=== PATIENT | male | born 1980 | race Caucasian/White ===

== ENCOUNTER 2016-09-20 05:46 | Emergency (ER) | payer MEDICARE, OTHER ==
[~2016-09-20] VITALS: Ht 172.7 cm; Wt 95.0 kg
[~2016-09-20 05:46] MED LIST: FLUO-1 PO; RISP.25 PO; TRAZ100 PO
[2016-09-20 05:51] VITALS: BP 159/105; PULSE 87; RESP 16; TEMP 97.7; O2SAT 98
[2016-09-20] MEDS ORDERED: LISI-519 PO (05:52)
--- NOTE | 2016-09-20 06:10 | PD ---
HPI Chief Complaint: Injury Time Seen by Provider: 06:00 Travel History International Travel<30 days: No Contact w/Intl Traveler<30days: No Traveled to known affect area: No History of Present Illness HPI [id number] male presents for evaluation of right hand pain. He reports that yesterday evening he could not close the lid of his car door and so he tried banging on it with his right fist and he felt pain in his right hand. Pain is An aching pain worse with movement. Associated swelling. In addition he has a cough for one week. He reports a history of chronic bronchitis and this feels like a flareup. He is out of his albuterol medication. Denies fevers or chills. The cough is mildly productive with phlegm production. No other complaints. PFSH Past Medical History Anxiety: Yes Depression: Yes Heart Rhythm Problems: No Cardiac Catheterization: No Cardiovascular Problems: Yes (HTN) High Cholesterol: No Congestive Heart Failure: No Diabetes: No Diminished Hearing: No Hypertension: No Psychiatric: Yes Respiratory: Yes (CHRONIC BRONCHITIS) Integumentary: Yes (HISTORY OF MRSA) Immunizations Current: No Myocardial Infarction: No Past Surgical History Coronary Artery Bypass Graft: No Tonsillectomy: Yes Other Surgery: Yes (brown recluse spider bite to elbow and had mrsa) Social History Alcohol Use: Yes (OCCASIONALLY) Tobacco Use: Yes (1/2 PPD) Substance Use: No Allergies-Medications (Allergen,Severity, Reaction): Coded Allergies: Penicillin (Verified Allergy, Severe, Anaphylaxis, 09/20/16) Reported Meds & Prescriptions Reported Meds & Active Scripts Active Proair Hfa 8.5 GM Inh (Albuterol Sulfate) 90 Mcg/Act Aer 2 Puff INH Q4-6H PRN 108 mcg/actuation Tessalon Perles (Benzonatate) 100 Mg Cap 200 Mg PO TID PRN 5 Days Prednisone 20 Mg Tab 20 Mg PO BID 5 Days Azithromycin 250 Mg Tab 250 Mg PO DIRECTED Take 2 tabs (500 mg) on day 1 then 1 tab daily x 4 days. Reported Lisinopril 5 Mg Tab 5 Mg PO DAILY Review of Systems Except as stated in HPI: all other systems reviewed are Neg Physical Exam Narrative GENERAL: Well-developed well-nourished male in no acute distress SKIN: Warm and dry. CARDIOVASCULAR: Regular rate and rhythm. No murmur appreciated. RESPIRATORY: No accessory muscle use. Clear to auscultation. Breath sounds equal bilaterally. Extremities: Right hand tenderness to palpation over the fourth and fifth metacarpals, mild bruising and soft tissue swelling. The patient maintains full flexion and extension of the fingers of the right hand with some pain. Capillary refill intact. Distal sensation intact. Data Data Last Documented VS Vital Signs Date Time Temp Pulse Resp B/P Pulse Ox O2 Delivery O2 Flow Rate FiO2 09/20/16 05:51 97.7 87 16 159/105 98 Room Air Orders Hand, Complete ([id number]) (09/20/16 ) Ibuprofen (Motrin) (09/20/16 07:00) MDM Medical Decision Making Medical Screen Exam Complete: Yes Emergency Medical Condition: Yes Medical Record Reviewed: Yes Interpretation(s) Right hand x-ray reveals no acute abnormalities Differential Diagnosis Right hand metacarpal fracture, sprain, contusion Narrative Course 36-year-old male with right hand pain after banging on his car rodriguez with his closed fist in order to close it. He has mild bruising on the right hand and tenderness to palpation over the fourth and fifth metacarpals diffusely. He maintains full range of motion and he has normal neurovascular status. Right index reveals no acute abnormalities. In addition the patient has a history of chronic bronchitis and is complaining of a cough for one week. He is out of his albuterol inhaler. His lungs sound clear and he is afebrile, not tachycardic. Plan is to treat him with a refill of his albuterol inhaler, Tessalon, prednisone and azithromycin. He is stable for discharge. Diagnosis Primary Impression: Contusion of right hand Qualified Code: S60.221A - Contusion of right hand, initial encounter Additional Impression: Bronchitis Additional Instructions: Medication as prescribed. Take [id number] Tylenol or ibuprofen for discomfort. Apply ice pack to the affected area several times a day 10 minutes at a time. Follow-up with primary care physician. Med/Other Pt SpecificInfo: Prescription(s) given Scripts Albuterol 8.5 GM Inh (Proair Hfa 8.5 GM Inh)90 Mcg/Act Aer2 Puff INH Q4-6H PRN ( SHORTNESS OF BREATH) #1 INHALER Ref 0 108 mcg/actuation Prov:Missy Heaton MD 09/20/16 Benzonatate (Tessalon Perles)100 Mg Hat222 Mg PO TID PRN (COUGH) 5 Days Ref 0 Prov:Missy Heaton MD 09/20/16 Prednisone 20 Mg Tab20 Mg PO BID 5 Days Ref 0 Prov:Missy Heaton MD 09/20/16 Azithromycin 250 Mg Uha953 Mg PO DIRECTED #6 TAB Ref 0 Take 2 tabs (500 mg) on day 1 then 1 tab daily x 4 days. Prov:Missy Heaton MD 09/20/16 Disposition: 01 DISCHARGE HOME Condition: Stable Remy Cordoba Sep 20, 2016 06:10
--- NOTE | 2016-09-20 06:36 | RADRPT ---
EXAM DATE/TIME: 09/20/2016 06:12 [facility] COMPARISON: No previous studies available for comparison. INDICATIONS : Right hand pain. MEDICAL HISTORY : None. SURGICAL HISTORY : None. ENCOUNTER: Initial ACUITY: 2 days PAIN SCORE: 8/10 LOCATION: lateral hand. FINDINGS: Three view examination of the right hand demonstrates no soft tissue swelling, dislocation, or fractu re. The carpal bones appear intact. The interphalangeal and metacarpophalangeal joints are intact. Bony mineralization is normal. CONCLUSION: The osseous structures of the hand are intact. Mateo Sadler MD on September 20, 2016 at 6:34 Board Certified Radiologist. This report was verified electronically.
[2016-09-20] MEDS ORDERED: PRED20 PO (06:44)
[2016-09-20] MEDS ORDERED: BENZ100 PO (06:44)
[2016-09-20] MEDS ORDERED: AZIT250T3 PO (06:44)
[2016-09-20] MEDS ORDERED: ALBUAER3 INH (06:49)
[2016-09-20] MEDS ORDERED: IBUPROFEN 800 MG TAB PO ONE (07:00)
== END 2016-09-20 07:14 | disposition home or self-care (01) ==
LOC: NEPB 05:46
DX: S60.221A Contusion of right hand, initial encounter (principal); J42 Unspecified chronic bronchitis; I10 Essential (primary) hypertension; F17.200 Nicotine dependence, unspecified, uncomplicated; Z86.14 Personal history of Methicillin resistant Staphylococcus aureus infection; Z86.59 Personal history of other mental and behavioral disorders; Z87.09 Personal history of other diseases of the respiratory system; W22.09XA Striking against other stationary object, initial encounter
CPT/HCPCS: 73130; 99283

== ENCOUNTER 2016-11-24 10:02 | Emergency (ER) | payer MEDICARE, OTHER ==
[~2016-11-24] VITALS: Ht 172.7 cm; Wt 90.0 kg
[~2016-11-24 10:02] MED LIST changes: +ALBUAER3 INH; +AZIT250T3 PO; +BENZ100 PO; -FLUO-1 PO; +LISI-519 PO; +PRED20 PO; -RISP.25 PO; -TRAZ100 PO
[2016-11-24 10:03] VITALS: BP 143/99; PULSE 93; RESP 16; TEMP 97.9; O2SAT 96
[2016-11-24 10:22] VITALS: BP 134/98; PULSE 77; RESP 18; TEMP 98.6; O2SAT 100
[2016-11-24] MEDS ORDERED: LORazepam 1 MG TAB PO ONE (10:30)
--- NOTE | 2016-11-24 10:43 | PD ---
HPI Chief Complaint: Psychiatric Symptoms Time Seen by Provider: 10:12 Travel History International Travel<30 days: No Contact w/Intl Traveler<30days: No Traveled to known affect area: No History of Present Illness HPI The patient is a 36-year-old male who presents emergency department for psychiatric evaluation. The patient states he has a history of PTSD and depression. The patient has not been taking his psychiatric medications. The patient does complain of insomnia, states he has difficulty sleeping for approximately a knife at a time. He has been trying Ambien extended release without any symptomatic relief. He does have thoughts of harming himself with suicidal thoughts, does have a history of previous suicide attempts with overdose. The patient is requesting psychiatric evaluation. He also admits to drinking alcohol intermittently, binge drinking, and smoking marijuana occasionally. The patient denies any hallucinations or delusions. Patient denies any current chest pain, shortness of breath, nausea, vomiting, or abdominal pain. PFSH Past Medical History Anxiety: Yes Depression: Yes Heart Rhythm Problems: No Cardiac Catheterization: No Cardiovascular Problems: Yes (HTN) High Cholesterol: No Congestive Heart Failure: No Diabetes: No Diminished Hearing: No Hypertension: No Psychiatric: Yes Respiratory: Yes (CHRONIC BRONCHITIS) Integumentary: Yes (HISTORY OF MRSA) Immunizations Current: No Myocardial Infarction: No Past Surgical History Coronary Artery Bypass Graft: No Tonsillectomy: Yes Other Surgery: Yes (brown recluse spider bite to elbow and had mrsa) Social History Alcohol Use: Yes (OCCASIONALLY) Tobacco Use: Yes (1/2 PPD) Substance Use: No Allergies-Medications (Allergen,Severity, Reaction): Coded Allergies: Penicillin (Verified Allergy, Severe, Anaphylaxis, 09/20/16) Reported Meds & Prescriptions Reported Meds & Active Scripts Active Proair Hfa 8.5 GM Inh (Albuterol Sulfate) 90 Mcg/Act Aer 2 Puff INH Q4-6H PRN 108 mcg/actuation Tessalon Perles (Benzonatate) 100 Mg Cap 200 Mg PO TID PRN 5 Days Prednisone 20 Mg Tab 20 Mg PO BID 5 Days Azithromycin 250 Mg Tab 250 Mg PO DIRECTED Take 2 tabs (500 mg) on day 1 then 1 tab daily x 4 days. Reported Lisinopril 5 Mg Tab 5 Mg PO DAILY Review of Systems Except as stated in HPI: all other systems reviewed are Neg Cardiovascular: No: Chest Pain or Discomfort Respiratory: No: Shortness of Breath Gastrointestinal: No: Nausea, Vomiting, Abdominal Pain Genitourinary: No: Dysuria Psychiatric: Positive: Depression, Suicidal Ideations, Mood Disorder, Substance Abuse, No: Homicidal Ideation Physical Exam Narrative GENERAL: Awake, alert, pleasant 36-year-old male who appears his stated age is in no acute respiratory distress. SKIN: Warm and dry. HEAD: Atraumatic. Normocephalic. EYES: Mild injection bilateral, no drainage. ENT: No nasal bleeding or discharge. Mucous membranes pink and moist. NECK: Trachea midline. No JVD. CARDIOVASCULAR: Regular rate and rhythm. No murmur appreciated. RESPIRATORY: No accessory muscle use. Clear to auscultation. Breath sounds equal bilaterally. GASTROINTESTINAL: Abdomen soft, non-tender, nondistended. No rebound tenderness. MUSCULOSKELETAL: No obvious deformities. No clubbing. No cyanosis. No edema. NEUROLOGICAL: Awake and alert. No obvious cranial nerve deficits. Motor grossly within normal limits. Normal speech. Nonfocal. PSYCHIATRIC: Flat affect. Data Data Last Documented VS Vital Signs Date Time Temp Pulse Resp B/P Pulse Ox O2 Delivery O2 Flow Rate FiO2 11/24/16 10:28 78 16 11/24/16 10:22 98.6 134/98 100 Orders Complete Blood Count With Diff (11/24/16 10:16) Comprehensive Metabolic Panel (11/24/16 10:16) Psych Screen (11/24/16 10:16) Drug Screen, Random Urine (11/24/16 10:16) Alcohol (Ethanol) (11/24/16 10:16) Diet Regular Basic (11/24/16 Lunch) Lorazepam (Ativan) (11/24/16 10:30) Labs Laboratory Tests Test 11/24/16 11/24/16 10:37 11:30 White Blood Count 6.3 TH/MM3 Red Blood Count 5.16 MIL/MM3 Hemoglobin 17.0 GM/DL Hematocrit 49.7 % Mean Corpuscular Volume 96.3 FL Mean Corpuscular Hemoglobin 32.9 PG Mean Corpuscular Hemoglobin 34.2 % Concent Red Cell Distribution Width 13.7 % Platelet Count 186 TH/MM3 Mean Platelet Volume 8.9 FL Neutrophils (%) (Auto) 67.8 % Lymphocytes (%) (Auto) 21.6 % Monocytes (%) (Auto) 8.7 % Eosinophils (%) (Auto) 1.0 % Basophils (%) (Auto) 0.9 % Neutrophils # (Auto) 4.3 TH/MM3 Lymphocytes # (Auto) 1.4 TH/MM3 Monocytes # (Auto) 0.5 TH/MM3 Eosinophils # (Auto) 0.1 TH/MM3 Basophils # (Auto) 0.1 TH/MM3 CBC Comment DIFF FINAL Differential Comment Sodium Level 139 MEQ/L Potassium Level 3.5 MEQ/L Chloride Level 100 MEQ/L Carbon Dioxide Level 27.6 MEQ/L Anion Gap 11 MEQ/L Blood Urea Nitrogen 5 MG/DL Creatinine 0.85 MG/DL Estimat Glomerular Filtration 101 ML/MIN Rate Random Glucose 92 MG/DL Calcium Level 8.5 MG/DL Total Bilirubin 0.5 MG/DL Aspartate Amino Transf 92 U/L (AST/SGOT) Alanine Aminotransferase 62 U/L (ALT/SGPT) Alkaline Phosphatase 98 U/L Total Protein 7.7 GM/DL Albumin 3.9 GM/DL Ethyl Alcohol Level 80 MG/DL Urine Opiates Screen NEG Urine Barbiturates Screen NEG Urine Amphetamines Screen NEG Urine Benzodiazepines Screen NEG Urine Cocaine Screen NEG Urine Cannabinoids Screen POS MDM Medical Decision Making Medical Screen Exam Complete: Yes Emergency Medical Condition: Yes Medical Record Reviewed: Yes Interpretation(s) Laboratory Tests Test 11/24/16 11/24/16 10:37 11:30 White Blood Count 6.3 TH/MM3 Red Blood Count 5.16 MIL/MM3 Hemoglobin 17.0 GM/DL Hematocrit 49.7 % Mean Corpuscular Volume 96.3 FL Mean Corpuscular Hemoglobin 32.9 PG Mean Corpuscular Hemoglobin 34.2 % Concent Red Cell Distribution Width 13.7 % Platelet Count 186 TH/MM3 Mean Platelet Volume 8.9 FL Neutrophils (%) (Auto) 67.8 % Lymphocytes (%) (Auto) 21.6 % Monocytes (%) (Auto) 8.7 % Eosinophils (%) (Auto) 1.0 % Basophils (%) (Auto) 0.9 % Neutrophils # (Auto) 4.3 TH/MM3 Lymphocytes # (Auto) 1.4 TH/MM3 Monocytes # (Auto) 0.5 TH/MM3 Eosinophils # (Auto) 0.1 TH/MM3 Basophils # (Auto) 0.1 TH/MM3 CBC Comment DIFF FINAL Differential Comment Sodium Level 139 MEQ/L Potassium Level 3.5 MEQ/L Chloride Level 100 MEQ/L Carbon Dioxide Level 27.6 MEQ/L Anion Gap 11 MEQ/L Blood Urea Nitrogen 5 MG/DL Creatinine 0.85 MG/DL Estimat Glomerular Filtration 101 ML/MIN Rate Random Glucose 92 MG/DL Calcium Level 8.5 MG/DL Total Bilirubin 0.5 MG/DL Aspartate Amino Transf 92 U/L (AST/SGOT) Alanine Aminotransferase 62 U/L (ALT/SGPT) Alkaline Phosphatase 98 U/L Total Protein 7.7 GM/DL Albumin 3.9 GM/DL Ethyl Alcohol Level 80 MG/DL Urine Opiates Screen NEG Urine Barbiturates Screen NEG Urine Amphetamines Screen NEG Urine Benzodiazepines Screen NEG Urine Cocaine Screen NEG Urine Cannabinoids Screen POS Differential Diagnosis Differential diagnosis includes PTSD, depressive disorder NOS, major depression , insomnia, adjustment reaction, mood disorder NOS. Narrative Course Labs were drawn and sent. The patient was administered Ativan 1 mg orally. Psychiatric evaluation was ordered. I'll call level is 80, tox is positive for cannabinoids, otherwise unremarkable. Patient is medically clear to be evaluated by psychiatry. Disposition as per psych. Diagnosis Primary Impression: Major depressive disorder, recurrent, unspecified Additional Impression: Insomnia Condition: Stable Robert Francisco MD Nov 24, 2016 10:43
[2016-11-24 11:07] LABS: AUTOMATED NEUTROPHIL # 4.3 TH/MM3 (1.8-7.7); BASOPHIL # 0.1 TH/MM3 (0-0.2); BASOPHIL % 0.9 % (0.0-2.0); EOSINOPHIL # 0.1 TH/MM3 (0-0.4); HEMATOCRIT 49.7 % (39.0-51.0); HEMO FLAGS DIFF FINAL; LYMPH % 21.6 % (9.0-44.0); LYMPHOCYTE # 1.4 TH/MM3 (1.0-4.8); MEAN CELL VOLUME 96.3 FL (80.0-100.0); MEAN CORPUSCULAR HEMOGLOBIN 32.9 PG (27.0-34.0); MEAN CORPUSCULAR HGB CONC 34.2 % (32.0-36.0); MONO % 8.7 % (0.0-8.0); NEUT % 67.8 % (16.0-70.0); PLATELET COUNT 186 TH/MM3 (150-450); RED BLOOD COUNT 5.16 MIL/MM3 (4.50-5.90); RED CELL DISTRIBUTION WIDTH 13.7 % (11.6-17.2); WHITE BLOOD COUNT 6.3 TH/MM3 (4.0-11.0)
[2016-11-24 11:22] LABS: ALT (GPT) 62 U/L (12-78); ANION GAP 11 MEQ/L (5-15); AST (GOT) 92 U/L (15-37); BICARBONATE 27.6 MEQ/L (21.0-32.0); BLOOD UREA NITROGEN 5 MG/DL (7-18); CHLORIDE 100 MEQ/L (98-107); POTASSIUM 3.5 MEQ/L (3.5-5.1); SODIUM (NA) 139 MEQ/L (136-145)
[2016-11-24 11:26] LABS: ALKALINE PHOSPHATASE 98 U/L (45-117); GLOMERULAR FILTRATION RATE 101 ML/MIN (>89); TOTAL BILIRUBIN ADULT 0.5 MG/DL (0.2-1.0)
[2016-11-24 12:04] LABS: AMPHETAMINE, URINE NEG (NEG); BARBITURATES, URINE NEG (NEG); COCAINE, URINE NEG (NEG)
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
== END 2016-11-24 16:12 | disposition home or self-care (01) ==
LOC: NEPC 10:02 → NEPJ 16:12
DX: F10.982 Alcohol use, unspecified with alcohol-induced sleep disorder (principal); F17.210 Nicotine dependence, cigarettes, uncomplicated; I10 Essential (primary) hypertension; Z86.14 Personal history of Methicillin resistant Staphylococcus aureus infection; F33.9 Major depressive disorder, recurrent, unspecified
CPT/HCPCS: 80053; 80307; 85025; 99284